=== PATIENT | female | born 1975 | race Caucasian/White ===

== ENCOUNTER 2018-12-31 21:22 | Emergency (ER) | payer MEDICAID ==
[~2018-12-31] VITALS: Ht 177.8 cm; Wt 131.5 kg
[~2018-12-31 21:22] MED LIST: METO25TA PO; SIMV20TA1 PO
[2018-12-31 21:33] VITALS: BP 131/46
--- NOTE | 2018-12-31 21:35 | NUR ---
PT AMBULATORY TO BATHROOM.
--- NOTE | 2018-12-31 21:50 | NUR ---
PT ARRIVED IN ED WITH COMPLAINTS OF LOW ABDOMEN AND FLANK BACK PAIN. PAIN INCREASES UPON URINATION. X3 DAYS. PT IN BED AWAITING ED TO ASSESS.
[2018-12-31] MEDS ORDERED: MECLIZINE 25 MG TAB PO ONE (23:25)
[2019-01-01 02:06] VITALS: BP 108/63
--- NOTE | 2019-01-01 02:07 | NUR ---
Patient discharged with v/s stable. Written and verbal after care instructions given and explained. Patient alert, oriented and verbalized understanding of instructions. Ambulatory with steady gait. All questions addressed prior to discharge. ID band removed. Patient advised to follow up with PMD. Rx of ANTIVERT given. Patient educated on indication of medication including possible reaction and side effects. DC'D BY MD. Opportunity to ask questions provided and answered.
== END 2019-01-01 01:59 | disposition home or self-care (01) ==
LOC: MED 21:22
DX: H81.10 Benign paroxysmal vertigo, unspecified ear (principal); Z79.899 Other long term (current) drug therapy
CPT/HCPCS: 81002; 81025; 99283; J8597

== ENCOUNTER 2020-06-09 03:12 | Emergency (ER) | payer MEDICAID ==
[~2020-06-09] VITALS: Ht 180.3 cm; Wt 124.7 kg
[2020-06-09 03:15] VITALS: BP 135/76
--- NOTE | 2020-06-09 03:18 | NUR ---
TO BED # 01 AMBULATORY
[2020-06-09] MEDS ORDERED: ASPIRIN 81 MG TAB.CHEW PO STA (03:23)
[2020-06-09] MEDS ORDERED: PROMETH/CODEINE 6.25-10MG/5ML 5 ML UDC PO STA (03:23)
--- NOTE | 2020-06-09 03:30 | NUR ---
PATIENT PRESENTS TO ED WITH C/O BACK PAIN . PT STATES IT RADIATES TO THE FRONT. DENIES N/V/D; SKIN IS PINK/WARM/DRY; AAOX4 WITH EVEN AND STEADY GAIT; LUNGS CLEAR BL; HR EVEN AND REGULAR; PT DENIES ANY FEVER, CP, SOB, OR COUGH AT THIS TIME; PATIENT STATES PAIN OF 6/10 AT THIS TIME; VSS; PATIENT POSITIONED FOR COMFORT; HOB ELEVATED; BEDRAILS UP X2; BED DOWN. ER MD MADE AWARE OF PT STATUS.
[2020-06-09] MEDS ORDERED: ASPIRIN 81 MG TAB.CHEW ONE (04:41)
[2020-06-09] MEDS ORDERED: PROMETH/CODEINE 6.25-10MG/5ML 5 ML UDC ONE (04:42)
--- NOTE | 2020-06-09 06:45 | NUR ---
LABS DRAWN AND SENT.
[2020-06-09 06:55] LABS: HEMATOCRIT 35.6 % (36-48); HEMOGLOBIN 11.8 g/dL (12.0-16.0); MEAN CORPUSCULAR HEMOGLOBIN 29 pg (27-31); MEAN CORPUSCULAR HGB CONC 33 g/dL (33-37); MEAN CORPUSCULAR VOLUME 87.6 fL (80-94); PLATELET COUNT (AUTO) 215 K/uL (140-450); RED BLOOD CELL COUNT(AUTO) 4.06 MIL/uL (4.20-5.40); RED CELL DISTRIBUTION WIDTH 14.5 % (11.6-13.7); WHITE BLOOD COUNT (AUTO) 10.5 K/uL (4.8-10.8)
[2020-06-09 07:09] LABS: EOSINOPHILS % (MANUAL) 3 % (0-4); MONOCYTES % (MANUAL) 5 % (5-12)
[2020-06-09 07:11] LABS: LYMPHOCYTES % (MANUAL) 50 % (20-46)
[2020-06-09 07:18] LABS: ANION GAP 10.5 (8-16); CARBON DIOXIDE 26.3 mmol/L (21-32); CREATININE 0.6 mg/dL (0.6-1.3); POTASSIUM 3.8 mmol/L (3.5-5.1)
[2020-06-09 08:28] VITALS: BP 124/76
--- NOTE | 2020-06-09 08:28 | NUR ---
Patient discharged with v/s stable. Written and verbal after care instructions given and explained. Patient verbalized understanding. Ambulatory with steady gait. All questions addressed prior to discharge. Advised to follow up with PMD.
== END 2020-06-09 08:28 | disposition home or self-care (01) ==
LOC: MED 03:12
DX: R07.2 Precordial pain (principal); R05 Cough; F17.200 Nicotine dependence, unspecified, uncomplicated; Z71.6 Tobacco abuse counseling
CPT/HCPCS: 36415; 71045; 80048; 81025; 84484; 85025; 85379; 93005; 99285